=== PATIENT | male | born 1990 | race Caucasian/White ===

== ENCOUNTER 2021-07-30 08:27 | Emergency (ER) | payer SELFPAY ==
[2021-07-30 08:34] VITALS: BP 118/70; PULSE 78; RESP 20; TEMP 36.6; O2SAT 100
--- NOTE | 2021-07-30 08:38 | ED.NAVMDI ---
HPI - Nausea/Vomiting/Diarrhea General Chief complaint: Nausea/Vomiting/Diarrhea Stated complaint: Vomiting,Diarrhea Time Seen by Provider: 07/30/21 08:38 Source: patient and RN notes reviewed Mode of arrival: ambulatory Limitations: no limitations History of Present Illness HPI Narrative: 30-year-old male presented for complaint of nausea, vomiting, diarrhea for 2 days. He states it is improving. He denies abd pain, hematemesis or hematochezia. He denies fevers or chills. Tolerating PO intake. He states he called into work and would like a work note. Denies sick contacts. Related Data Home Medications Medication Instructions Recorded Confirmed No Home Medications 07/30/21 07/30/21 Allergies Allergy/AdvReac Type Severity Reaction Status Date / Time No Known Allergies Allergy Verified 07/30/21 08:38 Review of Systems Review of Systems: CONSTITUTIONAL: Denies body aches, fever, chills EYES: Denies visual changes ENT: Denies rhinorrhea, congestion CARDIOVASCULAR: Denies chest pain, palpitations, or edema. RESPIRATORY: Denies cough or dyspnea. GASTROINTESTINAL: Endorses, nausea, vomiting, diarrhea. Denies abdominal pain hematochezia, melena, hematemesis GENITOURINARY: Denies dysuria, hematuria, or CVA tenderness. SKIN: Denies rash, itching, or wounds. MUSCULOSKELETAL: Denies back pain, joint pain, or myalgia. NEUROLOGIC: Denies headache, numbness, tingling, or weakness. PSYCH: Denies mood change All systems reviewed & are unremarkable except as noted in HPI and below PMFSH Comments At time of signature, I have reviewed and agree with nursing past medical, surgical, social and family history unless otherwise noted. Please see nursing chart for further information. There is no relevant family history pertinent to the presenting complaint Exam Narrative: GENERAL: Well-appearing HEAD: Normocephalic, atraumatic. EYES: EOMI. Conjunctivae normal. ENT: Mucous membranes pink and moist. NECK: Normal AROM. Supple. No lymphadenopathy. CHEST: No respiratory distress. Clear to auscultation. HEART: Regular rate and rhythm. No murmur appreciated. Normal peripheral pulses. ABDOMEN: Nontender abdomen, No guarding, rebound tenderness, or asymmetry; abd soft, nondistended, normal active bowel sounds. MUSCULOSKELETAL: No bony tenderness. EXTREMITIES: Normal range of motion. No edema. SKIN: Warm, dry, no rash. Capillary refill normal. Normal skin turgor. NEURO: No focal deficits. Alert and oriented x3. Gait steady. PSYCH: Normal affect. Course Course Emergency Course: Patient is aware of diagnosis, understands and agrees to treatment plan. Anticipatory guidance given. Patient agrees to follow-up as directed and is aware of reasons to seek care at the emergency department. Portions of this record may have been created with voice recognition software Level of Care: Express Care Visit Vital Signs Vital signs: Vital Signs Temperature 97.9 F 07/30/21 08:34 Pulse Rate 78 07/30/21 08:34 Respiratory Rate 20 07/30/21 08:34 Blood Pressure 118/70 07/30/21 08:34 Pulse Oximetry 100 07/30/21 08:34 Temperature 97.9 F 07/30/21 08:34 Pulse Rate 78 07/30/21 08:34 Respiratory Rate 20 07/30/21 08:34 Blood Pressure 118/70 07/30/21 08:34 Pulse Oximetry 100 07/30/21 08:34 MDM - Nausea/Vomiting/Diarrhea MDM Narrative Medical decision making narrative: Pt presented for n/v/d. Reports symptoms are improving and declines antiemetic. Advised BRAT diet. Requests work note. Differential Diagnosis Differential diagnosis: Likely food poisoning and gastroenteritis Discharge Plan Discharge Clinical Impression: Nausea vomiting and diarrhea Patient Disposition: Home, Self-Care Condition: Stable Instructions: Antibiotic Form, Gastroenteritis (ED) Additional Instructions: Stay hydrated. Take small sips of fluid containing electrolytes frequently. Clear liquids (broth, jello, tea, spri
== END 2021-07-30 08:47 | disposition home or self-care (01) ==
PROVIDERS: Emergency Provider Nurse Practitioner Family
DX: R11.2 Nausea with vomiting, unspecified (principal); R19.7 Diarrhea, unspecified
CPT/HCPCS: 99211; G0463

== ENCOUNTER 2022-03-02 12:52 | Emergency (ER) | payer SELFPAY ==
[2022-03-02 12:58] VITALS: BP 145/83; PULSE 89; RESP 20; TEMP 36.6; O2SAT 99
--- NOTE | 2022-03-02 13:02 | ED.NAVMDI ---
HPI - Nausea/Vomiting/Diarrhea General Chief complaint: Nausea/Vomiting/Diarrhea Stated complaint: diarrhea Time Seen by Provider: 03/02/22 13:02 Source: patient and RN notes reviewed History of Present Illness HPI Narrative: patient is a 31-year-old male who presents to the Urgent Care with complaints of diarrhea since last night. Patient states he has had approximately 20 loose stools. Patient states that this is normal for him after eating spicy foods . Patient states he ate spicy foods for dinner last night. Denies of any abdominal pain, nausea, vomiting. States that he only came for a work note because he cannot work fast food when he has diarrhea. Patient states that he obtained Pepto-Bismol [id number] which has since calmed down his stomach. No other acute complaints. No acute distress noted. Patient aware of the plan of care. Some parts of this dictation were generated by voice recognition software and may contain typographical and/or grammatical inaccuracies. Related Data Home Medications Medication Instructions Recorded Confirmed No Home Medications 07/30/21 03/02/22 Allergies Allergy/AdvReac Type Severity Reaction Status Date / Time No Known Allergies Allergy Verified 03/02/22 13:12 Review of Systems Review of Systems: CONSTITUTIONAL: Denies fever, chills, or sweats. EYES: Denies visual changes, redness, or discharge. ENT: Denies rhinorrhea, congestion, sore throat, or otalgia. CARDIOVASCULAR: Denies chest pain, palpitations, or edema. RESPIRATORY: Denies cough or dyspnea. GASTROINTESTINAL: Reports of diarrhea without nausea, vomiting or abdominal pain GENITOURINARY: Denies dysuria or hematuria. SKIN: Denies rash or itching. MUSCULOSKELETAL: Denies back pain, joint pain, or myalgia. NEUROLOGIC: Denies headache, numbness, or weakness. All other systems reviewed are negative, except as documented in HPI. PMFSH Comments At the time of my signature, I reviewed and agree with the nursing past medical, surgical, social, and family history. There is no relevant family history pertinent to the patient complaint. Exam Narrative: GENERAL: This is a well-nourished, well-developed patient, in no apparent distress. HEAD: normocephalic, atraumatic. EYES: PERRL. Sclera clear/white. Vision is grossly intact. EARS: External ears normal NOSE: External nose normal with no obvious nasal discharge, nares without redness, no rhinorrhea. THROAT: Mucous membranes moist NECK: Neck supple CARDIOVASCULAR: Regular rate and rhythm without murmurs, gallops, or rubs. RESPIRATORY: Clear to auscultation. Breath sounds equal bilaterally. No wheezes, rales, or rhonchi. GASTROINTESTINAL: Abdomen soft, non-tender, nondistended. Bowel sounds are hypoactive. No guarding. SKIN: warm, intact with no suspicious lesions or rash, good texture and turgor. NEURO: awake, alert, and oriented to person, place and time. There were no obvious focal neurologic abnormalities. EXTREMITIES: No clubbing, cyanosis, or edema. Course Course Level of Care: Express Care Visit Vital Signs Vital signs: Vital Signs Temperature 97.9 F 03/02/22 12:58 Pulse Rate 89 03/02/22 12:58 Respiratory Rate 20 03/02/22 12:58 Blood Pressure 145/83 H 03/02/22 12:58 Pulse Oximetry 99 03/02/22 12:58 Oxygen Delivery Room Air 03/02/22 12:58 Temperature 97.9 F 03/02/22 12:58 Pulse Rate 89 03/02/22 12:58 Respiratory Rate 20 03/02/22 12:58 Blood Pressure 145/83 H 03/02/22 12:58 Pulse Oximetry 99 03/02/22 12:58 Oxygen Delivery Room Air 03/02/22 12:58 reviewed- Patient is informed that they may have pre-hypertension or hypertension based on a blood pressure reading in the department. I recommend the patient call the primary care provider listed on their discharge instructions or a physician of their choice this week to arrange follow-up for further evaluation of possible pre-hypertension or hypertension. MDM - N
== END 2022-03-02 13:18 | disposition home or self-care (01) ==
PROVIDERS: Emergency Provider Nurse Practitioner Family
DX: R19.7 Diarrhea, unspecified (principal)
CPT/HCPCS: 99211; G0463

== ENCOUNTER 2022-04-03 18:45 | Emergency (ER) | payer SELFPAY ==
--- NOTE | 2022-04-03 18:49 | ED.NAVMDI ---
HPI - Nausea/Vomiting/Diarrhea General Chief complaint: Nausea/Vomiting/Diarrhea Stated complaint: nausea and diarrhea Time Seen by Provider: 04/03/22 18:49 Source: patient and RN notes reviewed History of Present Illness HPI Narrative: Patient is a 31-year-old male who presents to urgent care with complaints of nausea and diarrhea that started at 2:00 a.m. this morning. Patient has not taken anything [id number] for his symptoms. States that he has had approximately 15 loose stools after eating [employer] last night. Patient denies any blood in the stool. States that he has vomited 3 times in the last hour. Patient states that he does not have any abdominal discomfort and was more concerned about obtaining a work note. No other acute complaints. No acute distress noted. Patient aware of the plan of care. Some parts of this dictation were generated by voice recognition software and may contain typographical and/or grammatical inaccuracies. Related Data Allergies Allergy/AdvReac Type Severity Reaction Status Date / Time No Known Allergies Allergy Verified 04/03/22 18:53 Review of Systems Review of Systems: CONSTITUTIONAL: Denies fever, chills, or sweats. EYES: Denies visual changes, redness, or discharge. ENT: Denies rhinorrhea, congestion, sore throat, or otalgia. CARDIOVASCULAR: Denies chest pain, palpitations, or edema. RESPIRATORY: Denies cough or dyspnea. GASTROINTESTINAL: Reports of nausea, vomiting and diarrhea GENITOURINARY: Denies dysuria or hematuria. SKIN: Denies rash or itching. MUSCULOSKELETAL: Denies back pain, joint pain, or myalgia. NEUROLOGIC: Denies headache, numbness, or weakness. All other systems reviewed are negative, except as documented in HPI. PMFSH Comments At the time of my signature, I reviewed and agree with the nursing past medical, surgical, social, and family history. There is no relevant family history pertinent to the patient complaint. Exam Narrative: GENERAL: This is a well-nourished, well-developed patient, in no apparent distress. HEAD: normocephalic, atraumatic. EYES: PERRL. Sclera clear/white. Vision is grossly intact. EARS: External ears normal NOSE: External nose normal with no obvious nasal discharge, nares without redness, no rhinorrhea. THROAT: Mucous membranes moist NECK: Neck supple GASTROINTESTINAL: Abdomen soft, non-tender, nondistended. Bowel sounds are hyper active. No guarding. SKIN: warm, intact with no suspicious lesions or rash, good texture and turgor. NEURO: awake, alert, and oriented to person, place and time. There were no obvious focal neurologic abnormalities. EXTREMITIES: No clubbing, cyanosis, or edema. BACK: Nontender without deformity or crepitance. No flank tenderness. Course Course Level of Care: Express Care Visit Vital Signs Vital signs: Vital Signs Temperature 98.1 F 04/03/22 18:50 Pulse Rate 91 04/03/22 18:50 Respiratory Rate 20 04/03/22 18:50 Blood Pressure 123/71 04/03/22 18:50 Pulse Oximetry 99 04/03/22 18:50 Oxygen Delivery Room Air 04/03/22 18:50 Temperature 98.1 F 04/03/22 18:50 Pulse Rate 91 04/03/22 18:50 Respiratory Rate 20 04/03/22 18:50 Blood Pressure 123/71 04/03/22 18:50 Pulse Oximetry 99 04/03/22 18:50 Oxygen Delivery Room Air 04/03/22 18:50 Reviewed MDM - Nausea/Vomiting/Diarrhea MDM Narrative Medical decision making narrative: advised patient to eat a bland diet for the next 48 hours. Avoid any heavy greasy, fried, fatty foods. Increase water intake. Use the Zofran as needed for nausea. Use [id number] Pepto-Bismol as needed for stomach upset and diarrhea. If he develops any increase in symptoms associated with fevers, abdominal pain, persistent nausea/vomiting / diarrhea -go to the emergency room. Follow-up with your PCP within 2-5 days or for worsening symptoms or failure to improve. Differential Diagnosis Differential diagnosis: Likely traveler's d
[2022-04-03 18:50] VITALS: BP 123/71; PULSE 91; RESP 20; TEMP 36.7; O2SAT 99
== END 2022-04-03 19:02 | disposition home or self-care (01) ==
PROVIDERS: Emergency Provider Nurse Practitioner Family
DX: K52.9 Noninfective gastroenteritis and colitis, unspecified (principal)
CPT/HCPCS: 99213; G0463

== ENCOUNTER 2022-04-17 19:04 | Emergency (ER) | payer SELFPAY ==
[2022-04-17 19:13] VITALS: BP 146/70; PULSE 99; RESP 16; TEMP 37.6; O2SAT 100
--- NOTE | 2022-04-17 19:34 | ED.GENADULT ---
HPI - General Adult General Chief complaint: Dizziness Stated complaint: dizziness Source: patient Mode of arrival: ambulatory Limitations: no limitations History of Present Illness HPI narrative: Patient presents for evaluation of sick symptoms with symptom onset today. Symptoms include dizziness, lightheadedness, mild sore throat, occasional cough, generalized body aches, hot flashes and chills. Denies any SOB, nausea, vomiting or diarrhea. No recent sick contacts. He has never had COVID. He has not received flu shot or COVID vaccination. He has an underlying history of asthma and states he ran out of his albuterol inhaler. He is requesting a refill. He purchased some dayquil and nyquil but have not tried taking them yet. He smokes about 1/2 ppd. No additional complaints or concerns. Related Data Allergies Allergy/AdvReac Type Severity Reaction Status Date / Time No Known Allergies Allergy Verified 04/03/22 18:53 Review of Systems Review of Systems: CONSTITUTIONAL: Reports hot flashes and chills. EYES: Denies visual changes, redness, or discharge. ENT: Reports mild sore throat. Denies rhinorrhea, congestion, or otalgia. CARDIOVASCULAR: Denies chest pain, palpitations, or edema. RESPIRATORY:Reports occasional cough. Denies dyspnea. GASTROINTESTINAL: Denies abdominal pain, nausea, vomiting, or diarrhea. GENITOURINARY: Denies dysuria or hematuria. SKIN: Denies rash or itching. MUSCULOSKELETAL: Reports generalized body aches. NEUROLOGIC: Reports dizziness and lightheadedness. Denies headache, numbness, or weakness. PSYCHIATRIC: Denies anxiety or depression. [facility] Past Medical History Medical History (Updated 04/17/22 @ 20:06 by Luis Cain, ALEXA, ) Asthma Surgical History Surgical History History of ankle surgery Family History Family History Mother Family history non-contributory Social History Social History Smoking packs per day: 0.5 Smoking cigarettes per day: 10.0 Smoking status: Current every day smoker Alcohol intake: never Gender identity (if verbalized by the patient): Male Sexual Orientation (if Verbalized by the Patient): Straight or Heterosexual Spiritual care concerns: No Exam Narrative: GENERAL: Well-appearing, well-nourished, and in no acute distress. HEAD: Normocephalic, atraumatic. EYES: PERRLA and EOMI. ENT: Nares clear, no rhinorrhea or epistaxis. Mucous membranes moist. Oropharynx without tonsillar hypertrophy exudate or other lesions. Bilateral TMs pearly whitney nonbulging NECK: Supple. No adenopathy or masses. No carotid bruits or JVD CHEST: Clear to auscultation. No respiratory distress. No wheezes rales or rhonchi HEART: Regular rate and rhythm. No murmur heard. Normal peripheral pulses. ABDOMEN: Soft, nontender, nondistended, normal active bowel sounds. EXTREMITIES: Normal range of motion. No edema. SKIN: Warm, dry, no rash. NEURO: No focal deficits. Alert and oriented x3. PSYCH: Normal mood and affect. Course Course Emergency Course: THIS IS A 31-YEAR-OLD MALE WHO PRESENTED FOR EVALUATION OF SICK SYMPTOMS. COVID WAS POSITIVE. DISCUSSED RISKS VERSUS BENEFITS OF PAXLOVID. WILL OPT NOT TO TREAT WITH SUCH DUE TO POTENTIAL FOR REBOUND. INCREASE HYDRATION. OTC MEDS FOR SYMPTOM MANAGEMENT. FOLLOW UP WITH PRIMARY THIS COMING WEEK. ADVISE ON QUARANTINE AND PERIOD OF TIME IN WHICH TO WEAR MASK THEREAFTER. GO TO ER FOR DIFFICULTY BREATHING OR SWALLOWING. PT IN AGREEMENT WITH PLAN OF CARE. Level of Care: Express Care Visit Vital Signs Vital signs: Vital Signs Temperature 37.6 C H 04/17/22 19:13 Pulse Rate 99 04/17/22 19:13 Respiratory Rate 16 04/17/22 19:13 Blood Pressure 146/70 H 04/17/22 19:13 Pulse Oximetry 100 04/17/22 19:13 Oxygen Delivery Room Air
== END 2022-04-17 20:11 | disposition home or self-care (01) ==
PROVIDERS: Emergency Provider Nurse Practitioner
DX: U07.1 COVID-19 (principal); J45.909 Unspecified asthma, uncomplicated; F17.210 Nicotine dependence, cigarettes, uncomplicated
CPT/HCPCS: 87426; 87804; 99213; C9803; G0463

== ENCOUNTER 2022-05-01 15:16 | Emergency (ER) | payer SELFPAY ==
[2022-05-01 15:20] VITALS: BP 141/81; PULSE 85; RESP 20; TEMP 36.7; O2SAT 99
--- NOTE | 2022-05-01 16:13 | ED.URI ---
HPI - URI/Sore Throat General Chief Complaint: Upper Respiratory Infection Stated Complaint: nausea sore throat Time Seen by Provider: 05/01/22 15:55 Source: patient, RN notes reviewed and old records reviewed Mode of arrival: ambulatory Limitations: no limitations History of Present Illness HPI Narrative: 31 year old male who presents to [facility] care with complaints of nausea and sore throat which started yesterday and states that he had vomiting last night. Patient reports that he had COVID 2 weeks ago. Patient denies any body aches or any chills or known fever. Patient reports that he called off work and needs note for work. Patient states history of asthma but is out of his inhaler and requests refill.Patient reports last emesis at 0500 today is able to keep water down. MD elicited complaint: sore throat and other (nausea and vomiting) Pertinent past history: asthma Onset (ago): day(s) (day 2 of symptoms.) Able to tolerate fluids by mouth: Yes Related Data Allergies Allergy/AdvReac Type Severity Reaction Status Date / Time No Known Allergies Allergy Verified 04/03/22 18:53 Review of Systems Review of Systems: CONSTITUTIONAL: Denies fever, chills, or sweats. ENT: Denies rhinorrhea, congestion,[psitive for sore throat, no otalgia. CARDIOVASCULAR: Denies chest pain, palpitations, or edema. RESPIRATORY: Denies cough or dyspnea. GASTROINTESTINAL: Reports no abdominal pain,positive for nausea, vomiting,no diarrhea. GENITOURINARY: Denies dysuria or hematuria. SKIN: Denies rash or itching. MUSCULOSKELETAL: Denies back pain, joint pain, or myalgia. NEUROLOGIC: Denies headache, numbness, or weakness. All systems reviewed & are unremarkable except as noted in HPI and below [facility] Past Medical History Medical History (Updated 05/02/22 @ 00:01 by Annie Navarrete) Asthma Surgical History Surgical History History of ankle surgery Family History Family History Mother Family history non-contributory Social History Social History Smoking packs per day: 0.5 Smoking cigarettes per day: 10.0 Smoking status: Current every day smoker Alcohol intake: never Gender identity (if verbalized by the patient): Male Sexual Orientation (if Verbalized by the Patient): Straight or Heterosexual Spiritual care concerns: No Comments At time of signature, agree with nursing past medical, surgical, social and family history. There is no relevant family history pertinent to the presenting complaint Exam Narrative: GENERAL: Well-appearing, well-nourished, and in no acute distress. HEAD: Normocephalic, atraumatic. EYES: PERRLA, conjunctivae clear, and EOMI. ENT: Nares clear. Mucous membranes moist. Oropharynx without edema, erythema, or lesions. Tonsils not enlarged and without exudate. NECK: Supple. No lymphadenopathy CHEST: Speaks in full sentences. No respiratory distress. HEART: Regular rate and rhythm. ABDOMEN: Soft, flat, nondistended. No guarding, rebound tenderness, or rigid. No pulsatilla masses. Bowel sounds present in all four quadrants. No organomegaly. Negative Huff?s sign. No periumbilical tenderness. No Supra public tenderness or distension. Good femoral pulses bilaterally. No hernia noted. No scars or surface trauma.positive for nausea and vomiting SKIN: Warm, dry, no rash. NEURO:? Alert and oriented x3. PSYCH: Normal mood and affect Course Course Emergency Course: Patient is aware of diagnosis, understands and agrees to treatment plan.? Anticipatory guidance given.? Patient agrees to follow-up as directed and is aware of reasons to seek care at the emergency department. Portions of this record may have been created with voice recognition software Level of Care: Express Care Visit Vital Signs Vital signs: Vital Signs Temperatu
--- NOTE | 2022-05-01 16:34 | ED.URI ---
HPI - URI/Sore Throat General Chief Complaint: Upper Respiratory Infection Stated Complaint: nausea sore throat Time Seen by Provider: 05/01/22 15:55 Source: patient, RN notes reviewed and old records reviewed Mode of arrival: ambulatory Limitations: no limitations Related Data Allergies Allergy/AdvReac Type Severity Reaction Status Date / Time No Known Allergies Allergy Verified 04/03/22 18:53 [facility] Past Medical History Medical History (Updated 05/01/22 @ 16:22 by Gabi Mason NP) Asthma Surgical History Surgical History History of ankle surgery Family History Family History Mother Family history non-contributory Social History Social History Smoking packs per day: 0.5 Smoking cigarettes per day: 10.0 Smoking status: Current every day smoker Alcohol intake: never Gender identity (if verbalized by the patient): Male Sexual Orientation (if Verbalized by the Patient): Straight or Heterosexual Spiritual care concerns: No Course Vital Signs Vital signs: Vital Signs Temperature 36.7 C 05/01/22 15:20 Pulse Rate 85 05/01/22 15:20 Respiratory Rate 20 05/01/22 15:20 Blood Pressure 141/81 H 05/01/22 15:20 Pulse Oximetry 99 05/01/22 15:20 Oxygen Delivery Room Air 05/01/22 15:20 Temperature 36.7 C 05/01/22 15:20 Pulse Rate 85 05/01/22 15:20 Respiratory Rate 20 05/01/22 15:20 Blood Pressure 141/81 H 05/01/22 15:20 Pulse Oximetry 99 05/01/22 15:20 Oxygen Delivery Room Air 05/01/22 15:20 MDM - URI/Sore Throat Lab Data Labs: Strep Screen Presumptive Negative *(Reference Range: Negative)* Discharge Plan Discharge Clinical Impression: Pharyngitis, Nausea Patient Disposition: Home, Self-Care Condition: Stable Instructions: Antibiotic Form Additional Instructions: Your strep test today was negative. A throat culture will be sent to the laboratory for further testing. IF the test is positive, you will receive a phone call within 48 hours and an appropriate antibiotic will be initiated at that time. Claritin or Zyrtec daily . Do not share items with others. Salt water gargles may alleviate some of the throat discomfort. You can take Tylenol or ibuprofen per the package instructions for pain/fever. Zofran for any nausea and vomiting If your symptoms persist, change or worsen significantly before you can contact your personal physician then please, without delay, go to the emergency department for further evaluation. Follow-up with PCP in 7-10 days or sooner if needed Follow up with PCP soon in regards to your blood pressure which is elevated above threshold for referral. Blood pressure above 120/80 may indicate pre-hypertension. Blood pressure 141/81 today Prescriptions: New ondansetron 4 mg tablet,disintegrating 4 mg PO Q6H PRN (Reason: nausea and vomiting) Qty: 14 0RF Follow-up/Referrals: PHYSICIAN,WRAPPER COUNTER [Primary Care Provider] - Stand Alone Forms: Work/School Release IP Time of Disposition: 16:24
== END 2022-05-01 16:35 | disposition home or self-care (01) ==
PROVIDERS: Emergency Provider Registered Nurse
DX: J02.9 Acute pharyngitis, unspecified (principal); R11.0 Nausea; F17.210 Nicotine dependence, cigarettes, uncomplicated; J45.909 Unspecified asthma, uncomplicated
CPT/HCPCS: 87081; 87880; 99213; G0463

== ENCOUNTER 2022-06-03 14:30 | Emergency (ER) | payer SELFPAY ==
[2022-06-03 14:44] VITALS: BP 129/65; PULSE 88; RESP 16; TEMP 36.3; O2SAT 99
--- NOTE | 2022-06-03 15:24 | ED.NAVMDI ---
HPI - Nausea/Vomiting/Diarrhea General Chief complaint: Nausea/Vomiting/Diarrhea Stated complaint: Diarrhea/Nausea Source: patient and RN notes reviewed History of Present Illness HPI Narrative: 31-year-old male presents urgent care with complaints of diarrhea since last night. Patient states he ate chicken that his fiancee crypt for him and he was really want to get sick. Patient denies any vomiting or nausea. Denies any fevers, chills, no sick contacts, dysuria, or back pain. Denies any abdominal pain. Patient has attempted taking Pepto-Bismol with out any relief. Some parts of this dictation were generated by voice recognition software and may contain typographical and/or grammatical inaccuracies. Related Data Allergies Allergy/AdvReac Type Severity Reaction Status Date / Time No Known Allergies Allergy Verified 04/03/22 18:53 Review of Systems Review of Systems: CONSTITUTIONAL: Denies fever, chills, or sweats. EYES: Denies visual changes, redness, or discharge. ENT: Denies otalgia and sore throat CARDIOVASCULAR: Denies chest pain, palpitations, or edema. RESPIRATORY: Denies cough or dyspnea. GASTROINTESTINAL: Reports diarrhea. GENITOURINARY: Denies dysuria or hematuria. SKIN: Denies rash or itching. MUSCULOSKELETAL: Denies back pain, joint pain, or myalgia. [facility] Past Medical History Medical History (Updated 06/03/22 @ 15:30 by Ivonne Blas, EKTA) Asthma Surgical History Surgical History History of ankle surgery Family History Family History Mother Family history non-contributory Social History Social History Smoking packs per day: 0.5 Smoking cigarettes per day: 10.0 Smoking status: Current every day smoker Alcohol intake: never Gender identity (if verbalized by the patient): Male Sexual Orientation (if Verbalized by the Patient): Straight or Heterosexual Spiritual care concerns: No Comments At the time of my signature, I reviewed and agree with the nursing past medical, surgical, social, and family history. There is no relevant family history pertinent to the patient complaint. Exam Narrative: GENERAL: This is a well-nourished, well-developed patient, in no apparent distress. HEAD: normocephalic, atraumatic. EYES: PERRL. Sclera clear/white. Vision is grossly intact. EARS: External ears normal, auditory canals clear and without drainage, TMs normal without perforation. Hearing grossly intact. NOSE: External nose normal with no obvious nasal discharge, nares without redness, no rhinorrhea. THROAT: Mucous membranes moist, posterior pharynx clear. NECK: Neck supple, non-tender without lymphadenopathy, masses or thyromegaly. CARDIOVASCULAR: Regular rate and rhythm without murmurs, gallops, or rubs. RESPIRATORY: Clear to auscultation. Breath sounds equal bilaterally. No wheezes, rales, or rhonchi. GASTROINTESTINAL: Abdomen soft, non-tender, nondistended. Bowel sounds are active. No hepato-splenomegaly, or palpable masses. No guarding. SKIN: warm, intact with no suspicious lesions or rash, good texture and turgor. NEURO: awake, alert, and oriented to person, place and time. There were no obvious focal neurologic abnormalities. Course Course Level of Care: Express Care Visit Vital Signs Vital signs: Vital Signs Temperature 97.3 F L 06/03/22 14:44 Pulse Rate 88 06/03/22 14:44 Respiratory Rate 16 06/03/22 14:44 Blood Pressure 129/65 06/03/22 14:44 Pulse Oximetry 99 06/03/22 14:44 Oxygen Delivery Room Air 06/03/22 14:44 Temperature 97.3 F L 06/03/22 14:44 Pulse Rate 88 06/03/22 14:44 Respiratory Rate 16 06/03/22 14:44 Blood Pressure 129/65 06/03/22 14:44 Pulse Oximetry 99 06/03/22 14:44 Oxygen Delivery Room Air 06/03/22 14:44 Reviewed MDM - Nausea/Vomiting/Diarrhea MDM
== END 2022-06-03 15:33 | disposition home or self-care (01) ==
PROVIDERS: Emergency Provider Nurse Practitioner Family; PCP Emergency Medicine
DX: K52.9 Noninfective gastroenteritis and colitis, unspecified (principal); J45.909 Unspecified asthma, uncomplicated
CPT/HCPCS: 99211; G0463

== ENCOUNTER 2023-03-22 12:17 | Emergency (ER) | payer OTHER, SELFPAY ==
[2023-03-22 12:28] VITALS: BP 135/77; PULSE 80; RESP 20; TEMP 36.7; O2SAT 98
--- NOTE | 2023-03-22 13:01 | ED.GENADULT ---
HPI - General Adult General Chief complaint: Nausea/Vomiting/Diarrhea Stated complaint: Weak/Nausea/Diarrhea Source: patient Mode of arrival: ambulatory Limitations: no limitations History of Present Illness HPI narrative: PATIENT PRESENTS FOR EVALUATION OF ABDOMINAL PAIN, NAUSEA, VOMITING, DIARRHEA. SYMPTOM ONSET BETWEEN 24 AND 36 HOURS AGO. NO RECENT SICK CONTACTS TO HIS KNOWLEDGE. NO NEW FOODS. NO OUT OF COUNTRY TRAVEL. NO RECENT ALCOHOL USE. HE DESCRIBES THE PAIN IN HIS ABDOMEN IS STABBING, RATED 4/10 SEVERITY AND IN THE EPIGASTRIC REGION. PAIN USUALLY LASTS ABOUT 20 MINUTES AFTER HAVING A BOWEL MOVEMENT. HE IS HAVING BOWEL MOVEMENTS ABOUT EVERY 45 MINUTES TO AN HOUR. HE HAS EXPERIENCED CHILLS WITHOUT FEVER. Related Data Home Medications Medication Instructions Recorded Confirmed No Home Medications 03/22/23 03/22/23 Allergies Allergy/AdvReac Type Severity Reaction Status Date / Time No Known Allergies Allergy Verified 03/22/23 12:32 Review of Systems Review of Systems: CONSTITUTIONAL: DENIES FEVER, CHILLS, OR SWEATS. EYES: DENIES VISUAL CHANGES, REDNESS, OR DISCHARGE. ENT: DENIES RHINORRHEA, CONGESTION, SORE THROAT, OR OTALGIA. CARDIOVASCULAR: DENIES CHEST PAIN, PALPITATIONS, OR EDEMA. RESPIRATORY: DENIES COUGH OR DYSPNEA. GASTROINTESTINAL: REPORTS ABDOMINAL PAIN, NAUSEA, VOMITING AND DIARRHEA GENITOURINARY: DENIES DYSURIA OR HEMATURIA. SKIN: DENIES RASH OR ITCHING. MUSCULOSKELETAL: DENIES BACK PAIN, JOINT PAIN, OR MYALGIA. NEUROLOGIC: DENIES HEADACHE, NUMBNESS, DIZZINESS, OR WEAKNESS. PSYCHIATRIC: DENIES ANXIETY OR DEPRESSION. [facility] Past Medical History Medical History Asthma Surgical History Surgical History History of ankle surgery Family History Family History Mother Family history non-contributory Social History Social History Smoking packs per day: 0.5 Smoking cigarettes per day: 10.0 Smoking status: Former smoker Alcohol intake: never Substance use: never Additional living arrangements comments: LIVES WITH [place] Gender identity (if verbalized by the patient): Male Sexual Orientation (if Verbalized by the Patient): Straight or Heterosexual Spiritual care concerns: No Exam Narrative: GENERAL: WELL-APPEARING, WELL-NOURISHED, AND IN NO ACUTE DISTRESS. HEAD: NORMOCEPHALIC, ATRAUMATIC. EYES: PERRLA AND EOMI. ENT: NARES CLEAR, NO RHINORRHEA OR EPISTAXIS. MUCOUS MEMBRANES MOIST. OROPHARYNX WITHOUT TONSILLAR HYPERTROPHY EXUDATE OR OTHER LESIONS. BILATERAL TMS PEARLY RUSSELL NONBULGING NECK: SUPPLE. NO ADENOPATHY OR MASSES. NO CAROTID BRUITS OR JVD CHEST: CLEAR TO AUSCULTATION. NO RESPIRATORY DISTRESS. NO WHEEZES RALES OR RHONCHI HEART: REGULAR RATE AND RHYTHM. NO MURMUR HEARD. NORMAL PERIPHERAL PULSES. ABDOMEN: SOFT, NONDISTENDED, NORMAL ACTIVE BOWEL SOUNDS. THERE IS EPIGASTRIC TENDERNESS WITHOUT REBOUND OR GUARDING. EXTREMITIES: NORMAL RANGE OF MOTION. NO EDEMA. SKIN: WARM, DRY, NO RASH. NEURO: NO FOCAL DEFICITS. ALERT AND ORIENTED X3. PSYCH: NORMAL MOOD AND AFFECT. Course Course Emergency Course: THIS IS A 32-YEAR-OLD MALE WHO PRESENTED FOR EVALUATION OF ABDOMINAL PAIN, NAUSEA, VOMITING, DIARRHEA. INFLUENZA HERE NEGATIVE. HE IS TENDER ON EXAM. RECOMMEND HE GO TO THE HOSPITAL FOR FURTHER EVALUATION TO RULE OUT COLITIS. I CONTACTED [facility] AND SPOKE WITH RN, PERLA, WHO INDICATED DR. CALLE WOULD ACCEPT PT TO DEPARTMENT THERE. PATIENT WAS UPDATED THROUGHOUT HIS STAY IN AGREEMENT WITH PLAN CARE INCLUDING PLANS FOR TRANSFER. HE REQUESTED TO GO TO [facility]. Level of Care: Express Care Visit Vital Signs Vital signs: Vital Signs Temperature 36.7 C 03/22/23 12:28 Pulse Rate 80
== END 2023-03-22 13:34 | disposition short-term general hospital (02) ==
PROVIDERS: Emergency Provider Nurse Practitioner; PCP Internal Medicine
DX: R10.9 Unspecified abdominal pain (principal); J45.909 Unspecified asthma, uncomplicated; Z87.891 Personal history of nicotine dependence
CPT/HCPCS: 87804; 99213; G0463

== ENCOUNTER 2023-11-13 08:14 | Emergency (ER) | payer OTHER, SELFPAY ==
--- NOTE | ~2023-11-13 | XR_ITS ---
EXAMINATION: XR foot RT min 3V DATE: 11/13/2023 08:43 INDICATION: Dorsal right foot pain TECHNIQUE: Dorsoplantar, two oblique and lateral views of the right foot were obtained. COMPARISON: None. FINDINGS: Alignment is normal. No fracture. Joint spaces are normal. Small plantar calcaneal spur. Soft tissue swelling of the dorsum of the forefoot. IMPRESSION: 1. No acute osseous abnormality. Reviewed, dictated and finalized at location A.
[2023-11-13 08:29] VITALS: BP 120/76; PULSE 62; RESP 16; TEMP 36.6; O2SAT 100
--- NOTE | 2023-11-13 08:31 | ED.LOWEXIN ---
HPI - Extremity Injury (Lower) General Chief Complaint: Extremity Injury, Lower Stated Complaint: Right foot injury History of Present Illness HPI Narrative: patient presents with right foot pain. no swelling no deformity no bruising and no open areas noted. injury was one week ago, hit top of right foot on bike kickstand. Related Data Allergies Allergy/AdvReac Type Severity Reaction Status Date / Time No Known Allergies Allergy Verified 03/22/23 12:32 Review of Systems Review of Systems: CONSTITUTIONAL: Denies fever, chills, or sweats. EYES: Denies visual changes, redness, or discharge. ENT: Denies rhinorrhea, congestion, sore throat, or otalgia. CARDIOVASCULAR: Denies chest pain, palpitations, or edema. RESPIRATORY: Denies cough or dyspnea. GASTROINTESTINAL: Denies abdominal pain, nausea, vomiting, or diarrhea. GENITOURINARY: Denies dysuria or hematuria. SKIN: Denies rash or itching. MUSCULOSKELETAL: Denies back pain, joint pain, or myalgia. NEUROLOGIC: Denies headache, numbness, or weakness. PSYCHIATRIC: Denies anxiety or depression. [facility] Past Medical History Medical History Asthma Surgical History Surgical History History of ankle surgery Family History Family History Mother Family history non-contributory Social History Social History Smoking packs per day: 0.5 Smoking cigarettes per day: 10.0 Smoking status: Former smoker Alcohol intake: never Substance use: never Additional living arrangements comments: LIVES WITH [facility] Gender identity (if verbalized by the patient): Male Sexual Orientation (if Verbalized by the Patient): Straight or Heterosexual Spiritual care concerns: No Comments At time of signature, agree with nursing past medical, surgical, social and family history. There is no relevant family history pertinent to the presenting complaint Exam Narrative: GENERAL: Well-appearing, well-nourished, and in no acute distress. HEAD: Normocephalic, atraumatic. EYES: PERRLA and EOMI. ENT: Nares clear, no rhinorrhea or epistaxis. Mucous membranes moist. NECK: Supple. CHEST: Clear to auscultation. No respiratory distress. HEART: Regular rate and rhythm. No murmur heard. Normal peripheral pulses. ABDOMEN: Soft, nontender, nondistended, normal active bowel sounds. EXTREMITIES: Normal range of motion. No edema.SKIN INTACT. NORMAL DP PULSE, NORMAL CAP REFILL. NORMAL SENSATION. SKIN: Warm, dry, no rash. NEURO: No focal deficits. Alert and oriented x3. [place] Coma Scale Eye Opening: Spontaneous 4 [place] Coma Scale Motor: Obeys Commands 6 [place] Coma Scale Verbal: Oriented 5 [place] Coma Scale Total 15 Course Course Level of Care: Express Care Visit MDM - Extremity Injury (Lower) Imaging Data My impression: negative Radiologist's impression: negative Discharge Plan Discharge Clinical Impression: Foot pain, right Patient Disposition: Home, Self-Care Condition: Stable Additional Instructions: Ice to the area 20-30 minutes 4-6 times a day Elevate above heart Elastic wrap or orthopedic splint as directed for comfort for the next 5-7 days Crutches as directed if needed Tylenol for lesser pain Ibuprofen regularly for the next 2-3 days for the inflammation Follow-up with PCP if further problems or concerns -If you have any worsening of symptoms or any other concerns please go to the ED immediately. Prescriptions: New ibuprofen 800 mg tablet 800 mg PO TID 3 Days Qty: 9 0RF Follow-up/Referrals: Kobe Jain MD [Physician] - PHYSICIAN,MATERIALS AND CORROSION ENGINEER [Primary Care Provider] - Stand Alone Forms: Work/School Release IP
== END 2023-11-13 09:00 | disposition home or self-care (01) ==
PROVIDERS: Emergency Provider Nurse Practitioner Family
DX: M79.671 Pain in right foot (principal); Z87.891 Personal history of nicotine dependence; J45.909 Unspecified asthma, uncomplicated
CPT/HCPCS: 73630; 99213; G0463

== ENCOUNTER 2024-01-29 16:28 | Emergency (ER) | payer OTHER, SELFPAY ==
[2024-01-29 16:34] VITALS: BP 142/76; PULSE 85; RESP 14; TEMP 36.8; O2SAT 100
--- NOTE | 2024-01-29 16:59 | ED.URI ---
HPI - URI/Sore Throat General Chief Complaint: Upper Respiratory Infection Stated Complaint: Sore Throat Time Seen by Provider: 01/29/24 16:50 Source: patient, RN notes reviewed and old records reviewed Mode of arrival: ambulatory Limitations: no limitations History of Present Illness HPI Narrative: 33year old male presents to express care with complaints of sore throat which is scratchy feeling since Tuesday. Patient reports that initially his throat felt scratchy but has had increased symptoms today with his throat being sore when swallowing and he is loosing his voice. Patient reports that he took some Tylenol for a headache on Tuesday but has not taken any other medication for his discomfort or symptoms. Patient denies any cough or fevers, reports that he does have some nasal drainage. MD elicited complaint: sore throat Onset (ago): day(s) (3) Pain scale (0-10): 7 Able to tolerate fluids by mouth: Yes Treatments prior to arrival: acetaminophen Related Data Allergies Allergy/AdvReac Type Severity Reaction Status Date / Time No Known Allergies Allergy Verified 01/29/24 16:34 Review of Systems Review of Systems: CONSTITUTIONAL: Denies malaise, chills, sweats, or fever. EYES: Denies visual changes, redness, or discharge. ENT: Reports rhinorrhea, congestion, sinus pain, no otalgia and positive sore throat. CARDIOVASCULAR: Denies chest pain, palpitations, or edema. RESPIRATORY: Reports no cough.? Denies dyspnea. GASTROINTESTINAL: Denies abdominal pain, nausea, vomiting, diarrhea SKIN: Denies rash or itching. MUSCULOSKELETAL: Denies myalgia. NEUROLOGIC: reports some headaches. All systems reviewed & are unremarkable except as noted in HPI and below PMFSH Past Medical History Medical History Asthma Surgical History Surgical History History of ankle surgery Family History Family History Mother Family history non-contributory Social History Social History Smoking packs per day: 0.5 Smoking cigarettes per day: 10.0 Smoking status: Former smoker Smokeless tobacco user: chewing tobacco Alcohol intake: never Substance use: never Additional living arrangements comments: LIVES WITH FIANCE Gender identity (if verbalized by the patient): Male Sexual Orientation (if Verbalized by the Patient): Straight or Heterosexual Spiritual care concerns: No Comments At time of signature, agree with nursing past medical, surgical, social and family history. There is no relevant family history pertinent to the presenting complaint Exam Narrative: GENERAL: Well-appearing, well-nourished, obese and in no acute distress. HEAD: Normocephalic EYES: PERRLA, conjunctivae clear ENT: Nares clear, turbinates edematous and erythematous, clear discharge. Mucous membranes moist. TM pearly whitney with dull light reflex bilaterally; no tragal tenderness. Oropharynx erythematous without lesions. Tonsils not enlarged and without exudate, no drooling,positive for hoarseness, no trismus, uvula midline. post nasal drainage NECK: Supple. No lymphadenopathy CHEST: Clear to auscultation, breath sounds equal. No wheezing, rhonchi, rales, or stridor. No respiratory distress, speaks in full sentences.no cough noted SAO2 100% on room air HEART: Regular rate and rhythm. No murmur heard. SKIN: Warm, dry, no rash. NEURO: Alert and oriented x3. PSYCH: Normal mood and affect Course Course Emergency Course: Patient is aware of diagnosis, understands and agrees to treatment plan.? Anticipatory guidance given.? Patient agrees to follow-up as directed and is aware of reasons to seek care at the emergency department. Portions of this record may have been created with voice recognition software Le
[2024-01-30 14:29] LABS: EDSTREPNEGPOS1 Negative (Negative)
== END 2024-01-29 17:23 | disposition home or self-care (01) ==
PROVIDERS: Emergency Provider Registered Nurse
DX: J02.9 Acute pharyngitis, unspecified (principal); F17.220 Nicotine dependence, chewing tobacco, uncomplicated; J45.909 Unspecified asthma, uncomplicated
CPT/HCPCS: 87081; 87880; 99213; G0463